=== PATIENT | male | born 1970 | race Caucasian/White ===

== ENCOUNTER 2016-07-03 10:37 | Emergency (ER) | payer OTHER ==
[2016-07-03 11:09] VITALS: BP 144/94
--- NOTE | 2016-07-03 11:42 | UC ---
Throat Pain/Nasal Kevyn HPI - HPI Summary HPI Summary: complaint of nasal congestion anc cough for approx 7-10 days sinus pressure for several days coughing up large amounts of green sputum intermittent headaches and sore throat denies fever but had chills yesterday has been taking OTC daytime sinus , nyquil with some relief has had many URI's since 03/2016 - History of Current Complaint Chief Complaint: UCRespiratory Stated Complaint: CONGESTION,COUGH Time Seen by Provider: 07/03/16 11:34 - Allergies/Home Medications Allergies/Adverse Reactions: Allergies Allergy/AdvReac Type Severity Reaction Status Date / Time No Known Allergies Allergy Verified 11/17/14 10:29 Home Medications: Home Medications Multiple Vitamin [Multi Vitamin] 07/03/16 [History] Pryor-3 Fatty Acids [Fish Oil] 07/03/16 [History] PMH/Surg Hx/FS Hx/Imm Hx Previously Healthy: Yes Endocrine History Of: Denies: Diabetes, Thyroid Disease Cardiovascular History Of: Denies: Cardiac Disorders, Hypertension, Pacemaker/ICD Respiratory History Of: Denies: COPD, Asthma GI/ History Of: Denies: Ulcer, Renal Disease - Surgical History Surgical History: Yes Surgery Procedure, Year, and Place: CATARACTS LEFT EYE 11/2014 - Family History Known Family History: Negative: Cardiac Disease, Hypertension, Diabetes - Social History Occupation: Employed Full-time Lives: With Family Alcohol Use: Weekly Alcohol Amount: 2/WEEK Substance Use Type: None Smoking Status (MU): Never Smoked Tobacco Review of Systems Constitutional: Chills Skin: Negative Eyes: Negative ENT: Sore Throat, Nasal Discharge Respiratory: Cough Cardiovascular: Negative Gastrointestinal: Negative Genitourinary: Negative Motor: Negative Neurovascular: Negative Musculoskeletal: Negative Neurological: Headache Psychological: Negative All Other Systems Reviewed And Are Negative: Yes Physical Exam Triage Information Reviewed: Yes Appearance: No Pain Distress, Well-Nourished Vital Signs: Initial Vital Signs Temp 98.7 F 07/03/16 11:04 Pulse 68 07/03/16 11:04 Resp 16 07/03/16 11:04 BP 144/94 07/03/16 11:04 Pulse Ox 97 07/03/16 11:04 Vital Signs Reviewed: Yes Eyes: Positive: Conjunctiva Clear ENT: Positive: Pharyngeal erythema, Nasal congestion, Nasal drainage, TM bulging , Other: - maxillary sinus tenderness. Negative: TM red Neck: Positive: No Lymphadenopathy Respiratory: Positive: Lungs clear, Normal breath sounds, No respiratory distress, No accessory muscle use Cardiovascular: Positive: RRR, No Murmur, Pulses Normal Abdomen Description: Positive: Nontender, Soft Bowel Sounds: Positive: Present Musculoskeletal: Positive: No Edema Neurological: Positive: Alert Psychological Exam: Normal Skin Exam: Normal Throat Pain/Nasal Course/Dx - Course Course Of Treatment: exam completed. sinsuititis secondary to URI - Differential Dx/Diagnosis Provider Diagnoses: sinuitis. elevated blood pressure Discharge - Discharge Plan Condition: Stable Disposition: HOME Prescriptions: Amoxicillin/Clavulanate TAB* [Augmentin TAB 875*] 875 mg PO BID #20 tab Referrals: No Primary Care Phys,NOPCP [Primary Care Provider] - [facility] [place] [facility] [Outside] Additional Instructions: SINUSITIS What is Sinusitis? Sinusitis is inflammation or infection of the lining of the sinuses behind the bones in your cheeks or forehead. Sinusitis may occur following a common cold, flu, or other infection; allergies; a tooth infection that spreads to the sinuses; swimming in contaminated water; pressure changes in airplanes at high altitudes; violent sneezing or nose blowing or smoking or breathing other peoples smoke. Symptoms Might Include: Nasal Congestion Sneezing Watery eyes, eye irritation, or eye itching Headaches Pressure in the cheeks Wheezing Trouble smelling Sore throat and coughing may occur Treatment Recommendations: Take medicines as prescribed until completely gone. Drink plenty of fluids. Use saline nose spray to thin the mucous and help the sinuses drain. Use a vaporizer or humidifier. Apply warm compresses to the face or forehead several times a day for 10 to 20 minutes. Call Your Doctor or Return Here IF: Your pain increases during treatment. You develop a high temperature. You develop unusual swelling around the eyes. You have difficulty with your vision. You develop a severe headache, earache, or toothache. You develop increased fever or fever that does not respond to medication such as Tylenol?. You have difficulty breathing or catching your breath. You begin to have any other new symptoms that worry you. Your blood pressure is elevated. Please contact your primary care provider within 1 day -4 weeks for further evaluation.
== END 2016-07-03 11:57 | disposition home or self-care (01) ==
LOC: UCEAST 10:37
DX: J32.9 Chronic sinusitis, unspecified (principal); R03.0 Elevated blood-pressure reading, without diagnosis of hypertension
CPT/HCPCS: 99212; G0463